=== PATIENT | female | born 1945 | race Caucasian/White ===

== ENCOUNTER 2017-10-06 00:40 | Emergency (ER) | payer OTHER ==
[~2017-10-06] VITALS: Ht 167.6 cm; Wt 67.6 kg
[2017-10-06] MEDS ORDERED: HYDROCHLOROTHIA25 M1 PO (01:02)
[2017-10-06] MEDS ORDERED: AMITRIPTYLINE H10 M2 PO (01:03)
[2017-10-06] MEDS ORDERED: METOPROLOL TART25 M1 PO (01:03)
--- NOTE | 2017-10-06 01:39 | ED INFLUENZA/URI COMPLAINT ---
History of Present Illness General Chief Complaint: General Adult Stated Complaint: WEAKNESS,NIGHT HEADED PER ? FLU Source: patient, family, old records Exam Limitations: no limitations Vital Signs & Intake/Output Vital Signs & Intake/Output Vital Signs Date Time Temp Pulse Resp B/P B/P Pulse O2 O2 Flow FiO2 Mean Ox Delivery Rate 10/06 0055 98.0 67 18 143/77 99 Room Air Allergies Coded Allergies: No Known Allergies (10/06/17) Reconcile Medications Amitriptyline HCl 10 MG TABLET 1 TAB PO QPM HTN (Reported) Hydrochlorothiazide 25 MG TABLET 1 TAB PO DAILY HTN (Reported) Metoprolol Tartrate 25 MG TABLET 1 TAB PO BID HTN (Reported) Oseltamivir Phosphate (Tamiflu) 75 MG CAPSULE 1 CAP PO BID Influenza Triage Note: TRIAGE: PATIENT TO ER FROM HOME REPORTING SORE THROAT AND [place] SINCE THURSDAY, THURSDAY/ THURSDAY BEGAN W/ CORRECTIVE THERAPY AIDE COUGHING, FEVER AND BODY ACHES. TEMP IN TRIAGE: 98.0. TOOK ROBITUSSIN CF W/ TYLENOL W/O RELIEF. +DIZZINESS/ LIGHTHEADED W/ INTERMITTENT NAUSEA AND HEAD POUNDING. Triage Nurses Notes Reviewed? yes HPI: Patient is a 72-year-old female with a PMH significant for HTN, HLD, psoriatic arthritis, iron deficiency anemia who presents a three-day history of subjective fever, chills, body aches, nonproductive cough, nausea, lightheadedness. She states that her and her both got the flu shot approximately 2 weeks ago. Her also has been feeling similar symptoms but not nearly as severe for the past 4 days. Patient reports that she has been having generalized weakness, fatigue, body aches, one episode of diarrhea today, nonproductive cough with mild associated chest pain, rhinorrhea, nasal congestion, poor PO intake secondary to decreased appetite. She also reports that she had an episode of severe lightheadedness resulting in her falling to the ground with no head strike or other injury. Patient has had no recent travel and only sick contact is her . Patient denies any chest discomfort, palpitations, shortness of breath, abdominal pain. 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 No (Juan Small MD) Medical History Any Pertinent Medical History? see below for history Surgical History Surgical History: non-contributory (Danielle BURCIAGA,Juan Reardon) Review of Systems Review of Systems Constitutional: Reports: chills, fever, malaise, weakness. Denies: diaphoresis. EENTM: Reports: nasal congestion. Denies: blurred vision, double vision, visual changes. Respiratory: Reports: cough. Denies: short of breath, sputum production. Cardiovascular: Reports: chest pain (associated with cough). GI: Reports: diarrhea, nausea. Denies: distention, melena, bloody stool, vomiting. Genitourinary: Reports: no symptoms. Musculoskeletal: Reports: back pain, muscle pain (body aches). Skin: Denies: rash. (Juan Small MD) Physical Exam Physical Exam General Appearance: well developed/nourished, no apparent distress, alert, awake Head: atraumatic, normal appearance Eyes: Bilateral: normal appearance, PERRL, EOMI, pale conjunctivae. Ears, Nose, Throat: normal ENT inspection, moist mucous membrane, hearing grossly normal Neck: normal inspection, submandibular lymphadenopathy of on the R Respiratory: normal breath sounds, chest non-tender, no respiratory distress, lungs clear Cardiovascular: regular rate/rhythm Peripheral Pulses: 2+ radial (R), 2+ radial (L) Gastrointestinal: normal bowel sounds, soft, non-tender Core Measures Sepsis Present: No Sepsis Focused Exam Completed? No (Juan Small MD) Progress Differential Diagnosis: influenza, pharyngitis (Juan Small MD) Plan of Care: Orders Procedure Date/time Status MISTAKE 10/06 013 Active RAPID VIRAL INFLUENZA A 10/06 120 Complete URINALYSIS 10/06 120 Active TROPONIN LEVEL 10/06 120 Complete CBC WITHOUT DIFFERENTIAL 10/06 120 Complete BASIC METABOLIC PANEL 10/06 120 Complete EKG 10/06 120 Active Current Medications Sig/Amparo Start time Last Medication Dose Stop Time Status Admin Sodium Chloride 1,000 ML ONCE ONE 10/06 129 AC 10/06 (Normal Saline 0.9%) 10/06 08 0136 Laboratory Tests 10/06/17 0135: Anion Gap 16, Estimated GFR 49 L, BUN/Creatinine Ratio 17.3, Glucose 108 H, Calcium 9.3, Troponin I < 0.01, CBC w Diff NO MAN DIFF REQ, RBC 4.58, MCV 87.4, MCH 29.8, RDW 14.1, MPV 7.4, Gran % 74.6, Lymphocytes % 13.6 L, Monocytes % 11.2 H, Eosinophils % 0.2, Basophils % 0.4, Absolute Granulocytes 3.9, Absolute Lymphocytes 0.7 L, Absolute Monocytes 0.6, Absolute Eosinophils 0, Absolute Basophils 0, PUBS MCHC 34.1 Microbiology 10/06 0129 NASOPHARYN: Influenza Virus A & B Rapid Smear - COMP INFLUENZA TYPE B Patient's potassium was repleted orally with daily 40 mg Troponin EKG negative for signs of acute ischemic event Patient was given 1 L IV fluid rehydration given poor by mouth intake and history of diarrhea. Patient prescribed 5 day course of Tamiflu 75 mg twice a day, prescription was also sent for patient's 75 mg daily for 10 days. (Geovanny BURCIAGA,Juan) Initial ED EKG: NSR, nonspecific ST T wave chg (Danielle BURCIAGA,Juan Reardon) Departure Departure Disposition: HOME OR SELF CARE Condition: Stable Clinical Impression Primary Impression: Influenza B Referrals: Jeana BURCIAGA,Keivn Main (PCP/Family) Additional Instructions: Please follow-up with your primary care physician within 24-48 hours and inform him of this visit and your current diagnosis of influenza B. Stay hydrated as much as possible, avoid any strenuous activity until you have shown signs of recovery. Avoid any immunocompromised people including very young children or very old adults. You have been given a prescription for Tamiflu 75 mg twice a day for 5 days. Take this medication to completion. Her has also been given a prescription for Tamiflu 75 mg once a day for 10 days for prophylaxis. Call your doctor or return to the ER if your symptoms should significantly worsen should get short of breath, have chest pain, or lose consciousness. Departure Forms: Customer Survey General Discharge Information Prescriptions: Current Visit Scripts Oseltamivir Phosphate (Tamiflu) 1 CAP PO BID #10 CAP (Geovanny BURCIAGA,Juan) Resident Co-Sign Statement Statement: ED Attending supervision documentation- [X] I saw and evaluated the patient. I have also reviewed all the pertinent lab results and diagnostic results. I agree with the findings and the plan of care as documented in the Resident's documentation. [X] I have reviewed the ED Record and agree with the Resident's documentation. [] Additions or exceptions (if any) to the Resident's note and plan are summarized below: [] (Danielle BURCIAGA,Juan Reardon)
[2017-10-06 02:08] LABS: ABSOLUTE BASOPHIL COUNT 0 /CUMM (0.0-0.2); ABSOLUTE EOSINOPHIL COUNT 0 /CUMM (0.0-0.7); ABSOLUTE GRANULOCYTE CT 3.9 /CUMM (1.4-6.5); ABSOLUTE LYMPH COUNT 0.7 /CUMM (1.2-3.4); ABSOLUTE MONOCYTE COUNT 0.6 /CUMM (0.10-0.60); BASOPHIL % 0.4 % (0.0-2.0); EOSINOPHIL % 0.2 % (0-5); GRANULOCYTE % 74.6 % (42.2-75.2); MEAN CORPUSCULAR HGB 29.8 PG (27.0-31.0); MEAN CORPUSCULAR HGB CONC 34.1 G/DL (33.0-37.0); MEAN CORPUSCULAR VOLUME 87.4 FL (81.0-99.0); MEAN PLATELET VOLUME 7.4 FL (7.4-10.4); PLATELET COUNT 148 /CUMM (130-400); RBC DISTRIBUTION WIDTH 14.1 % (11.5-14.5); RED BLOOD CELL CT 4.58 /CUMM (4.20-5.40); WHITE BLOOD CELL COUNT 5.2 /CUMM (4.8-10.8)
[2017-10-06] MEDS ORDERED: TAMIFLU75 M1 PO (03:41)
[2017-10-06 04:05] VITALS: BP 134/78
== END 2017-10-06 04:06 ==
LOC: ERH 00:40
PROVIDERS: Dermatology
DX: J10.1 Influenza due to other identified influenza virus with other respiratory manifestations (principal); R50.9 Fever, unspecified; R42 Dizziness and giddiness
CPT/HCPCS: 87804; 87804-59; 93005; 93010

== ENCOUNTER 2018-03-30 13:02 | Inpatient (IN) | payer OTHER ==
[~2018-03-30] VITALS: Ht 167.6 cm; Wt 63.5 kg
[~2018-03-30 13:02] MED LIST: AMITRIPTYLINE H10 M2 PO; AMOXICILLIN250 M3 PO; HYDROCHLOROTHIA25 M1 PO; METOPROLOL TART25 M1 PO; TAMIFLU75 M1 PO
--- NOTE | 2018-03-30 13:26 | ED GENERAL ADULT ---
History of Present Illness General Chief Complaint: General Adult Stated Complaint: SENT IN BY DR DENT, +BLOOD CULTURES Source: patient Exam Limitations: no limitations Vital Signs & Intake/Output Vital Signs & Intake/Output Vital Signs Date Time Temp Pulse Resp B/P B/P Pulse O2 O2 Flow FiO2 Mean Ox Delivery Rate 03/30 1308 98.5 72 18 123/70 98 Room Air Allergies Coded Allergies: No Known Allergies (10/06/17) Reconcile Medications Amitriptyline HCl 10 MG TABLET 1 TAB PO QPM HTN (Reported) Hydrochlorothiazide 25 MG TABLET 1 TAB PO DAILY HTN (Reported) Metoprolol Tartrate 25 MG TABLET 1 TAB PO BID HTN (Reported) Triage Note: 72 YO FEMALE CALLED BACK TO ER FOR +BLOOD CULTURES. REPORTS SHE WAS HERE LAST PM AND DX WITH A UTI, REPORTS SHE IS FEELING MUCH BETTER TODAY THEN DID SHE DID LAST PM. Triage Nurses Notes Reviewed? yes Onset: Gradual Duration: day(s): Timing: recent history HPI: 03/30/18 1:26 PM Patient recalled by me for positive blood cultures. She is being admitted to the medical service for pyelonephritis and bacteremia. The patient has had fever and chills over the last of several days. Recent UA revealed pyuria. No chest pain, abdominal pain, or shortness of breath. Past History Travel History Traveled to [place] past 21 day No Medical History Any Pertinent Medical History? 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 No Review of Systems Review of Systems Constitutional: Reports: fever. EENTM: Denies: visual changes. Respiratory: Denies: short of breath. Cardiovascular: Denies: chest pain. GI: Reports: see HPI. Genitourinary: Reports: see HPI. Musculoskeletal: Reports: no symptoms. Skin: Denies: rash. Neurological/Psychological: Reports: no symptoms. Hematologic/Endocrine: Reports: no symptoms. Immunologic/Allergic: Reports: no symptoms. Physical Exam Physical Exam General Appearance: well developed/nourished, alert, awake, anxious, mild distress Head: atraumatic, normal appearance Eyes: Bilateral: normal appearance, PERRL, EOMI. Ears, Nose, Throat: normal ENT inspection Neck: normal inspection, supple, full range of motion Respiratory: normal breath sounds, chest non-tender, no respiratory distress Cardiovascular: regular rate/rhythm Peripheral Pulses: 4+ radial (R), 4+ radial (L) Gastrointestinal: soft, non-tender Back: normal range of motion Extremities: no edema Neurologic/Psych: no motor/sensory deficits, awake, alert, oriented x 3 Skin: intact, normal color, warm/dry Core Measures ACS in differential dx? No CVA/TIA Diagnosis: No Sepsis Present: No Sepsis Focused Exam Completed? No Progress Differential Diagnoses I considered the following diagnoses in my evaluation of the patient: [ Bacteremia, pyelonephritis] Plan of Care: Orders Procedure Date/time Status CBC WITHOUT DIFFERENTIAL 03/31 06 Active BASIC ELECTROLYTES PLUS BUN&CR 03/31 06 Active Heart Healthy Diet 03/30 D Active Pathway - chart 03/30 1451 Active House Staff 03/30 1451 Active Patient Data 03/30 1451 Active ED Holding Orders 03/30 1326 Active Admit to inpatient 03/30 1326 Active Vital Signs 03/30 1326 Active Code Status 03/30 1326 Active BLOOD CULTURE 03/30 1310 Active CBC WITHOUT DIFFERENTIAL 03/30 1310 Complete VTE Mechanical Prophylaxis 03/30 UNK Active Intake & Output 03/30 UNK Active Current Medications Sig/Amparo Start time Last Medication Dose Stop Time Status Admin Ceftriaxone Sodium 2,000 MG DAILY 03/31 0900 AC (Rocephin) Enoxaparin Sodium 40 MG DAILY 03/31 0900 AC (Lovenox) Hydrochlorothiazide 25 MG DAILY 03/31 0900 AC (Hydrodiuril) Metoprolol Tartrate 25 MG BID 03/30 2100 AC (Lopressor) Acetaminophen 1,000 MG Q8P PRN 03/30 1500 AC (Tylenol) Lactated Ringer's 1,000 ML ONCE ONE 03/30 1500 AC 03/30 (Lactated Ringers) 03/30 0620 1423 Laboratory Tests 03/30/18 1321: CBC w Diff MAN DIFF ORDERED, RBC 4.00 L, MCV 88.0, MCH 30.8, MCHC 35.0, RDW 14.1, MPV 7.0 L, Gran % 86.0 H, Lymphocytes % 8.3 L, Monocytes % 5.1, Eosinophils % 0.1, Basophils % 0.5, Absolute Granulocytes 9.0 H, Segmented Neutrophils 82 H, Band Neutrophils 9 H, Absolute Lymphocytes 0.9 L, Lymphocytes 6 L, Monocytes 3, Absolute Monocytes 0.5, Absolute Eosinophils 0, Absolute Basophils 0, Platelet Estimate ADEQUATE, Normocytic RBCs VERIFIED, Normochromic RBCs VERIFIED Microbiology 03/30 1433 BLOOD: Blood Culture - RECD 03/30 1321 BLOOD: Blood Culture - RECD Initial ED EKG: none Departure Departure Disposition: STILL A PATIENT Condition: Stable Clinical Impression Primary Impression: Bacteremia Referrals: Kevin Hills MD (PCP/Family) Departure Forms: Customer Survey General Discharge Information Admission Note Spoke With: Pat BURCIAGA,Aranza Buchanan Documentation of Exam: Documentation of any treatments & extenuating circumstances including Concerns Regarding Discharge (functional status, medication knowledge or non-compliance, living conditions, etc.) that warrant an admission rather than observation: [The patient needs admission for IV antibiotics, IV fluids, consider ID consultation] Critical Care Note Critical Care Note Critical Care Time: non-applicable
[2018-03-30 13:35] LABS: ABSOLUTE BASOPHIL COUNT 0 /CUMM (0.0-0.2); ABSOLUTE EOSINOPHIL COUNT 0 /CUMM (0.0-0.7); ABSOLUTE LYMPH COUNT 0.9 /CUMM (1.2-3.4); ABSOLUTE MONOCYTE COUNT 0.5 /CUMM (0.10-0.60); BASOPHIL % 0.5 % (0.0-2.0); EOSINOPHIL % 0.1 % (0-5); HEMATOCRIT 35.3 % (37-47); MEAN CORPUSCULAR HGB 30.8 PG (27.0-31.0); PLATELET COUNT 148 /CUMM (130-400); RBC DISTRIBUTION WIDTH 14.1 % (11.5-14.5); WHITE BLOOD CELL COUNT 10.4 /CUMM (4.8-10.8)
--- NOTE | 2018-03-30 14:05 | History & Physical ---
Nahomi Rae 03/30/18 1404: General Information and HPI MD Statement: I have seen and personally examined KARLA ESPINOSA and documented this H&P. The patient is a 72 year old F who presented with a patient stated chief complaint of []. Source of Information: patient, family Exam Limitations: no limitations History of Present Illness: 72 year old female with PMH: HTN, HLD, Psoriasis/psoriatic arthritis presents after being called back to ED for GNR positive 2 out of 2 blood cultures. Patient states she originally presented to the ED on 03/29 with fever and chills Tmax 101.8. She reported associated fatigue and headache. She was treated with one dose of Ceftriaxone and then given a prescription for Amoxicillin. She went home and continued to have chills overnight. This morning she woke up feeling improved and actively hydrated herself. She took her first dose of Amoxicillin at noon today. Currently she says she feels well and denies any dysuria, frequency, cough, chest pain, SOB, fever, chills, n/v/d. Patient denies any recent surgery, dental work, other infections. 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 Home Who Do You Live With? spouse Services at Home: None Primary Language: Tamazight Smoking Status: Never Smoked ETOH Use: occasional use, occasional beer with pizza Illicit Drug Use: denies illicit drug use Review of Systems Review of Systems Constitutional: Reports: chills, malaise. Denies: diaphoresis, fever, weakness. EENTM: Reports: no symptoms. Cardiovascular: Reports: no symptoms. Respiratory: Reports: no symptoms. GI: Reports: no symptoms. Genitourinary: Reports: no symptoms. Musculoskeletal: Reports: no symptoms. Skin: Reports: no symptoms. Exam & Diagnostic Data Last 24 Hrs of Vital Signs/I&O Vital Signs Date Time Temp Pulse Resp B/P B/P Pulse O2 O2 Flow FiO2 Mean Ox Delivery Rate 03/30 1308 98.5 72 18 123/70 98 Room Air Intake & Output 03/30 1600 03/30 0800 03/30 0000 Intake Total 1000 Output Total Balance 1000 Intake, IV 1000 Patient 160 lb Weight Weight Reported by Patient Measurement Method Physical Exam General Appearance Alert, Oriented X3, Cooperative, No Acute Distress Skin No Rashes Skin Temp/Moisture Exam: Warm/Dry HEENT Atraumatic, PERRLA, Mucous Membr. moist/pink Neck Supple Cardiovascular Regular Rate, Normal S1, Normal S2 Lungs Clear to Auscultation Abdomen Normal Bowel Sounds, Soft, No Tenderness Extremities No Edema, Normal Pulses Assessment/Plan Assessment: 72 year old female with PMH: HTN, HLD, Psoriasis/psoriatic arthritis presents after being called back to ED for GNR positive 2 out of 2 blood cultures. Patient states she originally presented to the ED on 03/29 with fever and chills Tmax 101.8. She reported associated fatigue and headache. She was treated with one dose of Ceftriaxone and then given a prescription for Amoxicillin. She will be admitted to general medicine service for IV antibiotics and further care for the following: Problem List: 1. Gram negative Dangelo bacteremia 2. Recent UTI (dx 03/29) Admission Data: VS: T98.5 P72 RR18 BP 123/70 Sat 98%RA WBC 10.4 H/H 12.4/35.3 Plt 14.1 #GNR bacteremia-likely source is UTI -IV ceftriaxone -transition to PO abx when appropriate; awaiting sensitivities #UTI (dx 03/29) -IV ceftriaxone will cover -f/u Urine culture results DVT prophylaxis: ALPS/ambulation/lovenox Diet: regular As Ranked By This Provider Problem List: 1. Bacteremia due to Gram-negative bacteria 2. UTI (urinary tract infection) Core Measures/Misc (05/31) Acute Coronary Syndrome ACS Diagnosis: No Congestive Heart Failure Congestive Heart Failure Diagnosis No Cerebrovascular Accident CVA/TIA Diagnosis: No VTE (View Protocol) VTE Risk Factors Age>40 No Mechanical VTE Prophylaxis d/t N/A MechProphylax Ordered No VTE Pharm Prophylaxis d/t NA PharmProphylax ordered Sepsis (View protocol) Sepsis Present: No If YES complete Sepsis Event Note If YES complete Sepsis Event Note Saira BURCIAGA,Calin 07/17/18 1514: Core Measures/Misc (05/31) Sepsis (View protocol) If YES complete Sepsis Event Note If YES complete Sepsis Event Note Resident Review Statement Resident Statement: examined this patient, discussed with production intern, agreed with production intern, discussed with family, reviewed EMR data (avail), discussed with nursing , discussed with case mgmt, reviewed images, amended to note Other Findings: Ms. Chester ss a 72-year-old female with past medical history of hypertension, hyperlipidemia, psoriatic arthritis who presented to the emergency department last night with fever, chills, headache, body aches, and fatigue found to have a fever of 101.8, treated with 1 dose of ceftriaxone and discharged with a prescription for amoxicillin, called today after 2/2 blood cultures came back positive for gram-negative rods and now being admitted to general medicine. She denies any nausea, vomiting, diarrhea, dysuria, abdominal pain, chest pain, shortness of breath, or cough. She is a never smoker, drinks socially, denies recreational drug use. On presentation, vital signs were T 101.8, HR 72, RR 18, BP 123/70, saturating 98% on room air.. General: Patient appears stated age, alert and orientedx3. HEENT: PERRL. No goiter. No palpable lymph nodes. Cardiovascular: Regular rate and rhythm, no murmurs, rubs, or gallops. Lungs: Clear to auscultation bilaterally. Abdomen: Normal bowel sounds. Nontender to palpation in all four quadrants. Skin: No rashes. Neuro: CN II-XII intact without any focal deficits. Ext: No edema, pulses normal. Laboratories were significant for normal CBCs, potassium 3.1, BUN 23, creatinine 1 1.2, total bilirubin 2.6, urinalysis showing 5075 WBCs. She will be admitted to general medicine and treated for the following problems: 1. Bacteremia 2. Hypokalmemia 3. Hyperbilirubinemia #Bacteremia: Patient presents with signs and symptoms of infection with positive blood cultures. The likely source is the urine given the positive urinalysis but urine culture so far negative. She does have no urinary symptoms. Lung is unlikely given lack of symptoms and negative imaging. -Ceftriaxone -Follow cultures -Fluids -Monitor Is/Os #Hypokalemia: -Replenish electrolytes #Hyperbilirubinemia: Possibly secondary to medication. -Differentiate bilirubin -Trend LFT -Consider doing RUQ US #Chronic medical problems -Continue home medications DVT prophylaxis with enoxparin Heart healthy diet FC Sergio Adams MD 03/30/181: General Information and HPI Allergies/Medications Home Med list Acyclovir (Zovirax) 5 % OINT...G. 1 JOHN TOP 5 TIMES A DAY cold sore Amitriptyline HCl 10 MG TABLET 1 TAB PO QPM HTN (Reported) Amoxicillin 875 MG TABLET 1 TAB PO BID BACTEREMIA Hydrochlorothiazide 25 MG TABLET 1 TAB PO DAILY HTN (Reported) Metoprolol Tartrate 25 MG TABLET 1 TAB PO BID HTN (Reported) Core Measures/Misc (05/31) Sepsis (View protocol) If YES complete Sepsis Event Note If YES complete Sepsis Event Note Attending MD Review Statement Attending Statement Attending MD Statement: examined this patient, discuss w/resident/PA/ADVENTURE EDUCATION TEACHER, agreed w/resident/PA/ADVENTURE EDUCATION TEACHER, discussed with family, reviewed EMR data (avail), amended to note Attending Assessment/Plan: The patient is a 72 yo female with h/o HTN, HL, psoriasis/psoriatic arthritis who presented for admission with positive blood cultures (2/) for GNR's. She had been seen in the ED the day prior with fever to 101.8, chills and back pain and was found to have pyuria. She was treated with Ceftriaxone x 1 and sent home on Amoxicillin. Lactate level was normal. Since then, her fever has resolved as has back pain. Due to positive blood cultures admission was advised by Dr. Lenz. She denied any dysuria or urinary frequency. She stated she has not had a UTI for many years. Physical Exam: VS: T 98.5, P 72, R 18, BP 123/70, PO 98% RA HEENT: eyes- PERRLA, EOMI shirley- moist mucosa Neck: no adenopathy Chest: clear Cor: RRR nl S1, S2 w/o murm Abd: BS+, soft, NT, - CVAT Ext: no edema Neuro: alert & oriented x 3 Labs/Tests- as above Impression/Plan: #Gram Negative Bacteremia- with pyuria suggesting urinary origin. As above, presented yesterday with fever. Normal lactate. Responded well to 1 dose of IV Ceftriaxone. Plan: Patient was called for admission for IV antibiotic therapy. Ceftriaxone 2g 24 hours- will give dose now. Await final cultures. #Urinary Tract Infection- patient presented with fever 101+ yesterday with chills and back pain. Presume upper tract infection. Plan: As above, will admit to general medicine. IV Ceftriaxone. IV hydration. #Hypokalemia- mild K 3.1 - due to volume depletion. Plan: Replete and hold HCTZ. #Essential HTN- BP stable. Plan: Continue Metoprolol #H/O Psoriasis/Psoriatic Arthritis- no active treatment at present. Plan: OP follow-up.
[2018-03-30 20:00] VITALS: BP 120/70
--- NOTE | 2018-03-30 22:21 | Admission Certification ---
Admission Certification Certification Statement - As attending physician, I certify that at the time of - admission, based on clinical presentation, severity of - symptoms, need for further diagnostic testing and - therapeutic interventions, and risk of adverse outcomes - without in-hospital treatment, in my clinical assessment, - this patient requires an acute hospital stay for a minimum - of two nights or longer. I have also considered psychsocial - factors such as support system, advanced age, financial - issues, cognitive issues, and failed out-patient treatments, - past re-admission history, safety of patient, and lack of - compliance as applicable. Specific rationale supporting this admission is: The patient presented with fever in ED yesterday and was treated with IV Ceftriaxone. Returns today after blood cultures (10/16 ) positive for gram negative bacteremia. Needs admission for IV antibiotics.
[2018-03-30 22:50] VITALS: BP 134/80
[2018-03-31 06:00] VITALS: BP 136/68
[2018-03-31 08:26] LABS: ABSOLUTE BASOPHIL COUNT 0 /CUMM (0.0-0.2); ABSOLUTE EOSINOPHIL COUNT 0.1 /CUMM (0.0-0.7); ABSOLUTE GRANULOCYTE CT 4.5 /CUMM (1.4-6.5); ABSOLUTE MONOCYTE COUNT 0.5 /CUMM (0.10-0.60); BASOPHIL % 0.6 % (0.0-2.0); EOSINOPHIL % 1.9 % (0-5); GRANULOCYTE % 74.2 % (42.2-75.2); HEMATOCRIT 30.8 % (37-47); MEAN CORPUSCULAR HGB 30.5 PG (27.0-31.0); MEAN CORPUSCULAR VOLUME 89.6 FL (81.0-99.0); MEAN PLATELET VOLUME 7.6 FL (7.4-10.4); PLATELET COUNT 124 /CUMM (130-400); RBC DISTRIBUTION WIDTH 14.4 % (11.5-14.5); RED BLOOD CELL CT 3.44 /CUMM (4.20-5.40); WHITE BLOOD CELL COUNT 6.1 /CUMM (4.8-10.8)
--- NOTE | 2018-03-31 08:57 | PN- Housestaff ---
See Addendum Subjective Follow-up For: GNR BACTEREMIA Complaints: no complaints Subjective: Patient states she didn't rest well just because it isn't her home. She has no complaints or symptoms overnight. Her labs showed potassium 3.1 and she was given one dose of K-dur. She did well and denies fever, chills, n/v/d, chest pain, SOB, abdominal pain. Review of Systems Constitutional: Reports: see HPI. Objective Last 24 Hrs of Vital Signs/I&O Vital Signs Date Time Temp Pulse Resp B/P B/P Pulse O2 O2 Flow FiO2 Mean Ox Delivery Rate 03/31 0600 98.3 73 18 136/68 94 Room Air 03/30 2250 98.5 65 20 134/80 94 Room Air 03/30 2236 120/90 03/30 2000 98.0 64 17 120/70 97 Room Air 03/30 1617 98.4 60 18 128/78 100 Room Air 03/30 1308 98.5 72 18 123/70 98 Room Air Intake & Output 03/31 1600 03/31 0800 03/31 0000 Intake Total 225 740 Output Total Balance 225 740 Intake, IV 125 500 Intake, Oral 100 240 Patient 140 lb Weight Weight Bed scale Measurement Method Physical Exam General Appearance: Alert, Oriented X3, Cooperative, No Acute Distress Skin: No Rashes Skin Temp/Moisture Exam: Warm/Dry HEENT: Atraumatic, PERRLA Neck: Supple Cardiovascular: Regular Rate, Normal S1, Normal S2 Lungs: Clear to Auscultation Abdomen: Normal Bowel Sounds, Soft, No Tenderness Extremities: No Edema, Normal Pulses Assessment/Plan Assessment: 72 year old female with PMH: HTN, HLD, Psoriasis/psoriatic arthritis presents after being called back to ED for GNR positive 2 out of 2 blood cultures. Problem List: 1. Gram negative Dangelo bacteremia 2. Recent UTI (dx 03/29) #GNR bacteremia-likely source is UTI -IV ceftriaxone -transition to PO abx when appropriate; awaiting sensitivities -Will plan for 14 day total abx course once transitioned to PO abx #UTI (dx 03/29) -IV ceftriaxone will cover -f/u Urine culture results DVT prophylaxis: ALPS/ambulation/lovenox Diet: regular Problem List: 1. Bacteremia due to Gram-negative bacteria 2. UTI (urinary tract infection) Pain Ratin Pain Location: none Pain Goal: Remain pain free Pain Plan: see a/p Tomorrow's Labs & Rationales: none
[2018-03-31] MEDS ORDERED: ZOVIRAX30 GM TOP (14:05)
[2018-03-31 14:35] VITALS: BP 128/70
[2018-03-31 22:00] VITALS: BP 124/74
[2018-04-01 06:30] VITALS: BP 122/68
--- NOTE | 2018-04-01 07:59 | PN- Housestaff ---
See Addendum Subjective Follow-up For: E.coli bacteremia Complaints: no complaints Subjective: Patient states she had no issues overnight. The staff was a little noisy around 5am in the hallway and that woke her up. She continues to feel well and denies fever, chills, n/v/d, chest pain, SOB, abdominal pain. She is eager to go home and complete her abx course outpatient. Review of Systems Constitutional: Reports: see HPI. Objective Last 24 Hrs of Vital Signs/I&O Vital Signs Date Time Temp Pulse Resp B/P B/P Pulse O2 O2 Flow FiO2 Mean Ox Delivery Rate 04/01 0630 98.1 59 16 122/68 96 Room Air 03/31 2200 98.4 65 20 124/74 96 Room Air 03/31 2019 68 128/55 03/31 1600 Room Air 03/31 1435 98.5 61 20 128/70 95 03/31 0948 98.3 73 18 136/68 Intake & Output 04/01 1600 04/01 0800 04/01 0000 Intake Total 100 1275 Output Total Balance 100 1275 Intake, Oral 100 1275 Physical Exam General Appearance: Alert, Oriented X3, Cooperative, No Acute Distress Skin: psoriatic plaques to left extensor surface Skin Temp/Moisture Exam: Warm/Dry HEENT: Atraumatic, PERRLA Neck: Supple Cardiovascular: Regular Rate, Normal S1, Normal S2, No Murmurs Lungs: Clear to Auscultation Abdomen: Normal Bowel Sounds, Soft, No Tenderness Extremities: No Edema, Normal Pulses Assessment/Plan Assessment: 72 year old female with PMH: HTN, HLD, Psoriasis/psoriatic arthritis presents after being called back to ED for GNR positive 2 out of 2 blood cultures. Problem List: 1. Gram negative Dangelo bacteremia 2. Recent UTI (dx 03/29) 3. Psoriasis-not currently active 4. HTN-chronic on HCTZ 5. Hypokalemia #GNR bacteremia-likely source is UTI -IV ceftriaxone while in hospital; transition to oral today -sensitivities: E.coli kerr sensitive -Will plan for 14 day total abx course total: Amoxicillin 875mg PO bid #UTI (dx 03/29) -IV ceftriaxone will cover -f/u Urine culture results #Psoriasis-not active -no treatment required here -she is being followed by her PCP for this chronic issue #HTN-holding HCTZ while inpatient for hypokalemia -Patient's BP has been stable and she will discuss with her PCP need for continued tx #Hypokalemia 3.1-RESOLVED -Given one dose of K-dur DVT prophylaxis: ALPS/ambulation/lovenox Diet: regular Dispo: dc home today with oral abx and PCP follow up. Problem List: 1. Bacteremia due to Gram-negative bacteria 2. UTI (urinary tract infection) 3. Hypokalemia Pain Ratin Pain Location: none Pain Goal: Remain pain free Pain Plan: see a/p Tomorrow's Labs & Rationales: none
[2018-04-01] MEDS ORDERED: AMOXICILLIN875 M1 PO ×3 (08:06→10:44)
--- NOTE | 2018-04-01 09:16 | Discharge Summary ---
Visit Information Visit Dates Admission Date: 03/30/18 Discharge Date: 04/01/18 Hospital Course Course Attending Physician: Sergio Adams MD Primary Care Physician: Kevin Hills MD Hospital Course: 72 year old female with PMH: HTN, HLD, Psoriasis/psoriatic arthritis presents after being called back to ED for GNR positive 2 out of 2 blood cultures. Patient states she originally presented to the ED on 03/29 with fever and chills Tmax 101.8. She reported associated fatigue and headache. She was treated with one dose of Ceftriaxone and then given a prescription for Amoxicillin. She was admitted to general medicine service for IV antibiotics and further care for the following: Problem List: 1. Gram negative Dangelo (E.coli) bacteremia 2. Recent UTI: E.coli (dx 03/29) 3. Psoriasis-not active 4. HTN-holding HCTZ 2/2 hypokalemia 5. Hypokalemia 3.1 Admission Data: VS: T98.5 P72 RR18 BP 123/70 Sat 98%RA WBC 10.4 H/H 12.4/35.3 Plt 14.1 #GNR bacteremia-likely source is UTI treated with IV ceftriaxone inpatient while awaiting culture/sensitivity results. Results came back positive for kerr sensitive E.coli. She was transitioned to Amoxicillin 875mg PO for a total of 10 day treatment. #UTI (dx 03/29) culture results showed positive for E.coli. The Amoxicillin will cover this infection as well as the bacteremia. #Psoriasis-not active -no treatment required inpatient -she is being followed by her PCP for this chronic issue #HTN-holding HCTZ while inpatient for hypokalemia -Patient's BP has been stable and she will discuss with her PCP need for continued tx #Hypokalemia 3.1-RESOLVED -Given one dose of K-dur She will follow up with her PCP within one week of discharge. She was instructed to complete her antibiotic course as prescribed. Allergies: Coded Allergies: No Known Allergies (10/06/17) Disposition Summary Disposition Principal Diagnosis: e.coli bacteremia Additional Diagnosis: e.coli urinary tract infection Discharge Disposition: home or self care Discharge Instructions General Discharge Information Code Status: Full Code Patient's Diet: regular Patient's Activity: as tolerated Follow-Up Instructions/Appts: complete abx course as prescribed resume regular home medications follow up with your PCP Medications at Discharge Discharge Medications: Continue taking these medications: Hydrochlorothiazide (Hydrochlorothiazide) 25 MG TABLET 1 Tablet ORAL DAILY Qty = 90 Comments: DID NOT ADMINISTER IN HOSPITAL Amitriptyline HCl (Amitriptyline HCl) 10 MG TABLET 1 Tablet ORAL Every night Qty = 90 Comments: Last Taken: 03/31/18 Time: 8PM Metoprolol Tartrate (Metoprolol Tartrate) 25 MG TABLET 1 Tablet ORAL TWICE DAILY Qty = 180 Comments: Last Taken: 04/01/18 Time: 10AM Start taking the following new medications: Amoxicillin (Amoxicillin) 875 MG TABLET 1 Tablet ORAL TWICE DAILY Qty = 22 No Refills Instructions: . Comments: DID NOT ADMINISTER IN HOSPITAL Acyclovir (Zovirax) 5 % OINT...G. 1 Application On the skin 5 TIMES A DAY Qty = 1 No Refills Instructions: . Comments: Last Taken: 04/01/19 Time: 9AM Copies To: Jeana BURCIAGA,Kevin Main Attending Review Statement Documenting Attending: Sergio Adams MD Other Findings: The patient remained afebrile and cultures grew E coli. Will discharge to home today with total 2 week course of antibiotics (Amoxicillin). Follow-up urine check with PCP after completion of antibiotics.
[2018-04-01 09:19] VITALS: BP 122/68
--- NOTE | 2018-04-01 10:42 | Patient Discharge Instructions ---
Discharge Instructions General Discharge Information You were seen/treated for: E.coli Bacteremia You had these procedures: none Watch for these problems: Fever, chills, nausea, vomiting, chest pain, Shortness of breath Special Instructions: Please follow up with your PCP within one week of discharge. Please complete the entire course of antibiotics as prescribed. Diet Continue normal diet: Yes Recommended Diet: Regular no added salt Activity Full Activity/No Limits: Yes Acute Coronary Syndrome Inclusion Criteria At DC or during hospital stay patient has or had the following: ACS DIAGNOSIS No Discharge Core Measures Meds if any: Prescribed or Continued at Discharge Meds if any: NOT Prescribed or Continued at Discharge Congestive Heart Failure Inclusion Criteria At DC or during hospital stay patient has or had the following: CHF DIAGNOSIS No Discharge Core Measures Meds if any: Prescribed or Continued at Discharge Meds if any: NOT Prescribed or Continued at Discharge Cerebrovascular accident Inclusion Criteria At DC or during hospital stay patient has or had the following: CVA/TIA Diagnosis No Discharge Core Measures Meds if any: Prescribed or Continued at Discharge Meds if any: NOT Prescribed or Continued at Discharge Venous thromboembolism Inclusion Criteria VTE Diagnosis No VTE Type NONE VTE Confirmed by (Test) NONE Discharge Core Measures - Per Current guidelines, there needs to be overlap - treatment for the first 5 days of Warfarin therapy. - If discharged on Warfarin prior to 5 days of - overlap therapy, the patient will need to be - assessed for post discharge needs including - *Post discharge parental anticoagulation - *Warfarin and/or parental anticoagulation education - *Follow up date to check INR post discharge At least 5 days overlap therapy as Inpatient No Meds if any: Prescribed or Continued at Discharge Note: Overlap Therapy is Warfarin and Anticoagulant Meds if any: NOT Prescribed or Continued at Discharge
[2018-04-01] MEDS ORDERED: ZOVIRAX30 GM TOP (10:44)
== END 2018-04-01 12:15 | DRG 690 ==
LOC: ERH 13:02 → ERHI 13:26 → 2NA 13:26 → ENRESERV 16:54 → ENTRNSPT 17:55 → EDTRNSPTSTS 18:04 → EDTRNSPT 18:04 → 2NA 18:09 → CMPTRNSPT 18:27 → ENPENDDIS 04-01 09:00 → ENTRNSPT 04-01 11:44 → EDTRNSPTSTS 04-01 11:49 → EDTRNSPT 04-01 11:49 → CMPTRNSPT 04-01 12:13 → 2NA 04-01 12:15
PROVIDERS: Emergency Medicine; Internal Medicine
DX: N39.0 Urinary tract infection, site not specified (principal); R78.81 Bacteremia; L40.50 Arthropathic psoriasis, unspecified; E78.5 Hyperlipidemia, unspecified; B96.20 Unspecified Escherichia coli [E. coli] as the cause of diseases classified elsewhere; E80.6 Other disorders of bilirubin metabolism; I10 Essential (primary) hypertension
CPT/HCPCS: 2NASP; 36592; 82436; 87040; 96361; 96374; J0696; J1650; J7120